=== PATIENT | male | born 1970 | race African-American/Black ===

== ENCOUNTER 2018-08-17 14:36 | Emergency (ER) | payer MEDICAID, OTHER ==
[~2018-08-17] VITALS: Ht 180.3 cm; Wt 68.0 kg
[2018-08-17] MEDS ORDERED: MORPHINE SULFATE 4 MG/ML CPJ (NOT FOR IM USE) IV STA (18:53)
[2018-08-17] MEDS ORDERED: MORPHINE SULFATE 10 MG/ML CPJ IV NR (20:00)
[2018-08-17 20:05] LABS: BASOPHILS % 0.2 % (0.0-2.0); CHLORIDE 106 mEq/L (98-107); EOSINOPHILS % 4.8 % (0.0-5.0); HEMATOCRIT. 40.5 % (42.0-52.0); HEMOGLOBIN. 13.6 g/dL (14.0-18.0); LYMPHOCYTES % 54.9 % (20.0-50.0); MEAN CORPUSCULAR HEMOGLOBIN 29.2 pg (28.0-32.0); MEAN PLATELET VOLUME 7.5 fl (7.4-10.4); MONOCYTES % 3.5 % (2.0-8.0); NEUTROPHILS % 36.6 % (40.0-76.0); PLATELET 324 x1000/uL (130-400); RED BLOOD CELL COUNT 4.65 mill/uL (4.7-6.1); RED CELL DISTRIBUTION WIDTH 17.2 % (11.6-14.6)
[2018-08-17 20:06] LABS: PROTHROMBIN TIME 10.5 sec (9.1-11.1)
[2018-08-17] MEDS ORDERED: IOHEXOL-300 100 ML BOTTLE ONE (21:32)
[2018-08-17] MEDS ORDERED: OXYCODONE HCL/ACETAMINOPHEN 5/325MG TABLET PO ONE (23:45)
[2018-08-17] MEDS ORDERED: KETOROLAC 30MG/ML VIAL IV ONE (23:45)
[2018-08-17 23:47] VITALS: BP 178/111
== END 2018-08-18 00:10 | disposition home or self-care (01) ==
LOC: ER 14:36
DX: M70.62 Trochanteric bursitis, left hip (principal); M25.562 Pain in left knee; F17.200 Nicotine dependence, unspecified, uncomplicated; F12.10 Cannabis abuse, uncomplicated; F15.10 Other stimulant abuse, uncomplicated; Z96.642 Presence of left artificial hip joint; Z98.890 Other specified postprocedural states; Y93.89 Activity, other specified
CPT/HCPCS: 36415; 72193; 73701; 80053; 85025; 85610; 96374; 96375; 99284; J1885; J2270; Q9967

== ENCOUNTER 2018-09-14 12:21 | Emergency (ER) | payer MEDICAID ==
[~2018-09-14] VITALS: Ht 180.3 cm; Wt 74.0 kg
[2018-09-14 13:25] VITALS: BP 167/98
== END 2018-09-14 17:08 | disposition left against medical advice (07) ==
LOC: ER 12:21
DX: G89.29 Other chronic pain (principal); M79.605 Pain in left leg; F12.10 Cannabis abuse, uncomplicated; F17.200 Nicotine dependence, unspecified, uncomplicated; Z96.642 Presence of left artificial hip joint
CPT/HCPCS: 99281

== ENCOUNTER 2018-11-27 13:03 | Emergency (ER) | payer MEDICAID, OTHER ==
[~2018-11-27] VITALS: Ht 180.3 cm; Wt 72.0 kg
[2018-11-27] MEDS ORDERED: HYDROCODONE/ACETAMINOPHEN 5/325MG TABLET PO ONE (14:30)
[2018-11-27 14:43] VITALS: BP 135/92
== END 2018-11-27 16:00 | disposition left against medical advice (07) ==
LOC: ER 13:25
DX: G89.29 Other chronic pain (principal); F17.200 Nicotine dependence, unspecified, uncomplicated; Z96.649 Presence of unspecified artificial hip joint
CPT/HCPCS: 73562; 99283